=== PATIENT | male | born 1955 | race Caucasian/White ===

== ENCOUNTER → 2024-12-18 | Outpatient (CLI) | payer MEDICARE, OTHER, SELFPAY ==
[2024-12-18 09:47] LABS: Misc Send Out* See Sep Rpt
[2024-12-18 09:57] LABS: Collection Type, Urine Clean Catch; Squamous Epithelial Cell,Urine 0 /hpf (0-5)
[2024-12-18 10:20] LABS: Basophils % (Auto) 1 % (0-2.5); Eosinophils # (Auto) 0.2 Thou/mm3 (0.0-0.5); Eosinophils % (Auto) 5 % (0-10); Hematocrit 40.7 % (41.0-53.0); Hemoglobin 13.5 g/dL (13.5-16.0); Immature Granulocytes % (Auto) 1 % (0-0); Immature Granulocytes Auto 0.03 Thou/mm3 (0.00-0.00); Immature Reticulocyte Fraction 20.9 % (2.3-13.4); Lymphocytes # (Auto) 1.1 Thou/mm3 (1.0-4.8); Lymphocytes % (Auto) 25 % (10-50); Mean Corpuscular HGB Conc 33.2 g/dl (31.0-37.0); Mean Corpuscular Hemoglobin 31.2 pg (25.0-35.0); Mean Corpuscular Volume 94 fL (80-100); Monocytes # (Auto) 0.3 Thou/mm3 (0.0-0.8); Monocytes % (Auto) 8 % (0-12); Neutrophils # (Auto) 2.7 Thou/mm3 (1.8-7.7); Neutrophils % (Auto) 61 % (37-80); Nucleated Red Blood Cell % 0 /100 WBC (0); Platelet Count 170 Thou/mm3 (140-440); RDW Standard Deviation 46.9 fL (35.1-43.9); Red Blood Count 4.33 Miln/mm3 (4.50-5.90); Reticulocyte % (Auto) 2.5 % (0.5-1.5); Reticulocyte Absolute Auto 108.3 Biln/L (25.0-75.0); Reticulocyte Hgb Content 36.2 pg (28.0-35.0); White Blood Count 4.4 Thou/mm3 (3.8-10.6)
[2024-12-18 10:31] LABS: Glucose Estimated Average 157 mg/dL (80-131); Hemoglobin A1C 7.1 % Hgb (4.8-6.0)
[2024-12-18 10:32] LABS: Alanine Aminotransferase 25 U/L (10-49); Albumin, Serum 4.7 gm/dL (3.4-4.8); Alkaline Phosphatase 30 U/L (46-116); Anion Gap 6 (7-16); Aspartate Amino Transferase 14 U/L (0-34); BUN/Creatinine Ratio 27 Ratio (12-20); Bilirubin,Total 0.5 mg/dL (0.3-1.2); Blood Urea Nitrogen 35 mg/dL (9-23); Calcium 10.1 mg/dL (8.3-10.6); Calcium (Corrected) 10.1 mg/dL (8.5-10.1); Carbon Dioxide 30.8 mMol/L (20.0-31.0); Cardiac Risk Estimate 4.5 RATIO (4.0-6.7); Chloride 102 mMol/L (98-107); Cholesterol 141 mg/dL (132-200); Creatinine (Component) 1.3 mg/dL (0.6-1.3); Glucose 176 mg/dL (74-106); HDL Cholesterol 31 mg/dL (40-60); LDL Cholesterol,Calculated 54 mg/dL (0-130); Magnesium 1.9 mg/dL (1.6-2.6); Osmolality,Calculated 289 (275-295); Parathyroid Hormone Intact 33.9 pg/ml (18.5-88.0); Phosphorous 2.9 mg/dL (2.4-5.1); Potassium 4.3 mMol/L (3.4-5.1); Sodium 139 mMol/L (136-145); Total Protein 6.9 gm/dL (5.7-8.2); Triglycerides 278 mg/dL (30-150); eGFR 59 See Note
[2024-12-18 10:33] LABS: Total Iron Binding Capacity 439 mcg/dL (250-425)
[2024-12-18 10:40] LABS: Folate 12.64 ng/mL (>5.38); Vitamin B12 889 pg/mL (211-911); Vitamin D 25 Hydroxy Total 36.4 ng/mL (7.3-40.2)
[2024-12-18 10:44] LABS: Creatinine MALB Rnd Ur 30 mg/dL (30-125); Creatinine,Random Urine 30 mg/dL (30-125); Microalbumin Creat Ratio 13 mg/gCrea (<30); Microalbumin, Random Urine 4 mg/L (0-300); Protein Total, Random Urine < 6 mg/dL (1-14)
[2024-12-18 10:49] LABS: Ferritin 73 ng/mL (10.5-307.3); Iron 101 mcg/dL (65-175); Percent Iron Saturation 23 % (20-55); Unsaturated Iron Binding 338 (225-295)
[2024-12-18 11:04] LABS: Bilirubin,Urine Negative (Negative); Blood,Urine Negative (Negative); Clarity,Urine Clear (Clear/Hazy); Color,Urine Colorless (Lt Yel-Yel); Glucose, Urine 4+ (Negative); Ketones,Urine Negative (Negative); Leukocyte Esterase,Urine Negative (Negative); Nitrite,Urine Positive (Negative); PH,Urine 6.5 (5.0-7.0); Protein,Urine Negative (Neg - Trace); RBC,Urine 1 /hpf (0-3); Specific Gravity,Urine 1.013 (1.001-1.035); Urobilinogen,Urine Negative mg/dL (0.0-1.0); WBC,Urine 3 /hpf (0-5)
== END | disposition home or self-care (01) ==
LOC: COPL 09:19
PROVIDERS: PCP Family Medicine; Referring Provider Internal Medicine Nephrology; Visit Provider Internal Medicine Nephrology
DX: I12.9 Hypertensive chronic kidney disease with stage 1 through stage 4 chronic kidney disease, or unspecified chronic kidney disease (principal); E11.22 Type 2 diabetes mellitus with diabetic chronic kidney disease; N18.2 Chronic kidney disease, stage 2 (mild); N39.0 Urinary tract infection, site not specified; E87.3 Alkalosis; E55.9 Vitamin D deficiency, unspecified; E78.5 Hyperlipidemia, unspecified
CPT/HCPCS: 36415; 80061; 80069; 81001; 82043; 82247; 82306; 82570; 82607; 82728; 82746; 83036; 83540; 83550; 83735; 83970; 84075; 84155; 84156; 84450; 84460; 85025; 85046; 87077; 87086; 87186

== ENCOUNTER → 2025-05-05 | Outpatient (CLI) | payer MEDICARE, OTHER, SELFPAY ==
[2025-05-05 10:11] LABS: Misc Send Out* See Sep Rpt
[2025-05-05 10:39] LABS: Collection Type, Urine Clean Catch; Squamous Epithelial Cell,Urine 0 /hpf (0-5)
[2025-05-05 10:59] LABS: Basophils % (Auto) 0 % (0-2.5); Eosinophils # (Auto) 0.2 Thou/mm3 (0.0-0.5); Eosinophils % (Auto) 3 % (0-10); Hematocrit 43.8 % (41.0-53.0); Hemoglobin 14.4 g/dL (13.5-16.0); Immature Granulocytes % (Auto) 1 % (0-0); Immature Granulocytes Auto 0.06 Thou/mm3 (0.00-0.00); Immature Reticulocyte Fraction 20.9 % (2.3-13.4); Lymphocytes # (Auto) 1.3 Thou/mm3 (1.0-4.8); Lymphocytes % (Auto) 25 % (10-50); Mean Corpuscular HGB Conc 32.9 g/dl (31.0-37.0); Mean Corpuscular Hemoglobin 30.8 pg (25.0-35.0); Mean Corpuscular Volume 94 fL (80-100); Monocytes # (Auto) 0.4 Thou/mm3 (0.0-0.8); Monocytes % (Auto) 8 % (0-12); Neutrophils # (Auto) 3.3 Thou/mm3 (1.8-7.7); Neutrophils % (Auto) 63 % (37-80); Nucleated Red Blood Cell % 0 /100 WBC (0); Platelet Count 189 Thou/mm3 (140-440); RDW Standard Deviation 47.8 fL (35.1-43.9); Red Blood Count 4.67 Miln/mm3 (4.50-5.90); Reticulocyte % (Auto) 2.4 % (0.5-1.5); Reticulocyte Absolute Auto 110.7 Biln/L (25.0-75.0); Reticulocyte Hgb Content 34.6 pg (28.0-35.0); White Blood Count 5.3 Thou/mm3 (3.8-10.6)
[2025-05-05 11:01] LABS: Bilirubin,Urine Negative (Negative); Blood,Urine Negative (Negative); Clarity,Urine Clear (Clear/Hazy); Color,Urine Colorless (Lt Yel-Yel); Glucose, Urine 3+ (Negative); Ketones,Urine Negative (Negative); Leukocyte Esterase,Urine Negative (Negative); Nitrite,Urine Positive (Negative); PH,Urine 6.5 (5.0-7.0); Protein,Urine Negative (Neg - Trace); RBC,Urine 3 /hpf (0-3); Specific Gravity,Urine 1.009 (1.001-1.035); Urobilinogen,Urine Negative mg/dL (0.0-1.0); WBC,Urine 1 /hpf (0-5)
[2025-05-05 11:07] LABS: Glucose Estimated Average 143 mg/dL (80-131); Hemoglobin A1C 6.6 % Hgb (4.8-6.0)
[2025-05-05 11:11] LABS: Parathyroid Hormone Intact 19.5 pg/ml (18.5-88.0)
[2025-05-05 11:14] LABS: Alanine Aminotransferase 30 U/L (10-49); Alkaline Phosphatase 32 U/L (46-116); Anion Gap 11 (7-16); Aspartate Amino Transferase 25 U/L (0-34); BUN/Creatinine Ratio 26 Ratio (12-20); Bilirubin,Total 0.6 mg/dL (0.3-1.2); Blood Urea Nitrogen 36 mg/dL (9-23); Calcium 10.5 mg/dL (8.3-10.6); Calcium (Corrected) 10.5 mg/dL (8.5-10.1); Carbon Dioxide 29.6 mMol/L (20.0-31.0); Cardiac Risk Estimate 5.4 RATIO (4.0-6.7); Chloride 100 mMol/L (98-107); Cholesterol 162 mg/dL (132-200); Creatine Kinase 176 U/L (34-171); Creatinine (Component) 1.4 mg/dL (0.6-1.3); Glucose 141 mg/dL (74-106); HDL Cholesterol 30 mg/dL (40-60); Magnesium 2.1 mg/dL (1.6-2.6); Osmolality,Calculated 291 (275-295); Phosphorous 3.3 mg/dL (2.4-5.1); Potassium 4.3 mMol/L (3.4-5.1); Sodium 141 mMol/L (136-145); Total Protein 6.9 gm/dL (5.7-8.2); Triglycerides 459 mg/dL (30-150); Uric Acid 9.2 mg/dL (3.7-9.2); eGFR 54 See Note
[2025-05-05 11:15] LABS: Ferritin 58 ng/mL (10.5-307.3); Iron 87 mcg/dL (65-175); Percent Iron Saturation 18 % (20-55); Total Iron Binding Capacity 469 mcg/dL (250-425); Unsaturated Iron Binding 382 (225-295)
[2025-05-05 11:18] LABS: Creatinine MALB Rnd Ur 19 mg/dL (30-125); Creatinine,Random Urine 19 mg/dL (30-125); Microalbumin, Random Urine < 3 mg/L (0-300); Protein Total, Random Urine 7 mg/dL (1-14)
[2025-05-05 12:13] LABS: Folate 13.13 ng/mL (>5.38); Vitamin B12 1147 pg/mL (211-911)
== END | disposition home or self-care (01) ==
LOC: COPL 09:36
PROVIDERS: PCP Family Medicine; Referring Provider Internal Medicine Nephrology; Visit Provider Internal Medicine Nephrology
DX: E11.22 Type 2 diabetes mellitus with diabetic chronic kidney disease (principal); D63.1 Anemia in chronic kidney disease; E55.9 Vitamin D deficiency, unspecified; E78.5 Hyperlipidemia, unspecified; E79.0 Hyperuricemia without signs of inflammatory arthritis and tophaceous disease; E87.3 Alkalosis; N18.9 Chronic kidney disease, unspecified; N39.0 Urinary tract infection, site not specified; Z87.441 Personal history of nephrotic syndrome
CPT/HCPCS: 36415; 80061; 80069; 81001; 82043; 82247; 82306; 82550; 82570; 82607; 82728; 82746; 83036; 83540; 83550; 83735; 83970; 84075; 84155; 84156; 84450; 84460; 84550; 85025; 85046; 87086

== ENCOUNTER → 2025-08-06 | Outpatient (CLI) | payer MEDICARE, OTHER, SELFPAY ==
[2025-08-06 09:54] LABS: Misc Send Out* See Sep Rpt
[2025-08-06 10:11] LABS: Collection Type, Urine Clean Catch; Squamous Epithelial Cell,Urine 0 /hpf (0-5)
[2025-08-06 10:36] LABS: Basophils # (Auto) 0.0 Thou/mm3 (0.0-0.2); Basophils % (Auto) 1 % (0-2.5); Eosinophils # (Auto) 0.1 Thou/mm3 (0.0-0.5); Eosinophils % (Auto) 3 % (0-10); Hematocrit 43.0 % (41.0-53.0); Hemoglobin 13.9 g/dL (13.5-16.0); Immature Granulocytes Auto 0.04 Thou/mm3 (0.00-0.00); Immature Reticulocyte Fraction 18.8 % (2.3-13.4); Lymphocytes # (Auto) 1.1 Thou/mm3 (1.0-4.8); Lymphocytes % (Auto) 25 % (10-50); Mean Corpuscular HGB Conc 32.3 g/dl (31.0-37.0); Mean Corpuscular Hemoglobin 30.5 pg (25.0-35.0); Mean Corpuscular Volume 95 fL (80-100); Monocytes # (Auto) 0.3 Thou/mm3 (0.0-0.8); Monocytes % (Auto) 8 % (0-12); Neutrophils # (Auto) 2.7 Thou/mm3 (1.8-7.7); Neutrophils % (Auto) 63 % (37-80); Nucleated Red Blood Cell # 0.00 Thou/mm3 (0.00-0.00); Nucleated Red Blood Cell % 0 /100 WBC (0); Platelet Count 193 Thou/mm3 (140-440); RDW Standard Deviation 48.1 fL (35.1-43.9); Red Blood Count 4.55 Miln/mm3 (4.50-5.90); Reticulocyte % (Auto) 2.4 % (0.5-1.5); Reticulocyte Absolute Auto 108.7 Biln/L (25.0-75.0); Reticulocyte Hgb Content 34.4 pg (28.0-35.0); White Blood Count 4.3 Thou/mm3 (3.8-10.6)
[2025-08-06 10:53] LABS: Parathyroid Hormone Intact 32.2 pg/ml (18.5-88.0)
[2025-08-06 11:00] LABS: Bilirubin,Urine Negative (Negative); Blood,Urine Negative (Negative); Clarity,Urine Clear (Clear/Hazy); Color,Urine Colorless (Lt Yel-Yel); Glucose, Urine 3+ (Negative); Ketones,Urine Negative (Negative); Leukocyte Esterase,Urine Negative (Negative); Nitrite,Urine Positive (Negative); PH,Urine 7.0 (5.0-7.0); Protein,Urine Negative (Neg - Trace); RBC,Urine 2 /hpf (0-3); Specific Gravity,Urine 1.009 (1.001-1.035); Urobilinogen,Urine Negative mg/dL (0.0-1.0); WBC,Urine 3 /hpf (0-5)
[2025-08-06 11:01] LABS: Folate 12.48 ng/mL (>5.38); Vitamin B12 1029 pg/mL (211-911); Vitamin D 25 Hydroxy Total 40.0 ng/mL (7.3-40.2)
[2025-08-06 11:05] LABS: Culture Indicated,Urine Yes
[2025-08-06 11:07] LABS: Ferritin 65 ng/mL (10.5-307.3); Iron 112 mcg/dL (65-175); Percent Iron Saturation 25 % (20-55); Total Iron Binding Capacity 440 mcg/dL (250-425); Unsaturated Iron Binding 328 (225-295)
[2025-08-06 11:08] LABS: Alanine Aminotransferase 32 U/L (10-49); Albumin, Serum 4.7 gm/dL (3.4-4.8); Albumin/Globulin Ratio 2.5 (1.2-2.2); Alkaline Phosphatase 34 U/L (46-116); Anion Gap 9 (7-16); Aspartate Amino Transferase 23 U/L (0-34); BUN/Creatinine Ratio 21 Ratio (12-20); Bilirubin,Total 0.7 mg/dL (0.3-1.2); Blood Urea Nitrogen 29 mg/dL (9-23); Calcium 10.3 mg/dL (8.3-10.6); Calcium (Corrected) 10.3 mg/dL (8.5-10.1); Carbon Dioxide 30.2 mMol/L (20.0-31.0); Chloride 102 mMol/L (98-107); Creatinine (Component) 1.4 mg/dL (0.6-1.3); Globulin 1.9 gm/dL (2.3-3.5); Glucose 139 mg/dL (74-106); Magnesium 2.2 mg/dL (1.6-2.6); Osmolality,Calculated 289 (275-295); Phosphorous 3.1 mg/dL (2.4-5.1); Potassium 4.3 mMol/L (3.4-5.1); Sodium 141 mMol/L (136-145); Total Protein 6.6 gm/dL (5.7-8.2); eGFR 53 See Note
[2025-08-06 11:16] LABS: Creatinine,Random Urine 24 mg/dL (30-125); Protein Total, Random Urine < 6 mg/dL (1-14)
[2025-08-11 19:51] LABS: Albumin 4.2 g/dL (3.8-4.8); Alpha-1-Globulin 0.3 g/dL (0.2-0.3); Alpha-2-Globulin 0.8 g/dL (0.5-0.9); Beta-1-Globulin 0.5 g/dL (0.4-0.6); Beta-2-globulin 0.3 g/dL (0.2-0.5); Gamma Globulin 0.4 g/dL (0.8-1.7); Kappa Light Chain, Free 18.3 mg/L (3.3-19.4); Lambda Light Chain, Free 13.5 mg/L (5.7-26.3)
[2025-08-12 06:55] LABS: Kappa/Lambda, Free Ratio 1.36 (0.26-1.65); Protein, total, serum 6.6 g/dL (6.1-8.1)
== END | disposition home or self-care (01) ==
LOC: COPL 09:30
PROVIDERS: PCP Family Medicine; Referring Provider Internal Medicine Nephrology; Visit Provider Internal Medicine Nephrology
DX: N18.1 Chronic kidney disease, stage 1 (principal); N39.0 Urinary tract infection, site not specified; D63.1 Anemia in chronic kidney disease; E55.9 Vitamin D deficiency, unspecified; E78.5 Hyperlipidemia, unspecified; E79.0 Hyperuricemia without signs of inflammatory arthritis and tophaceous disease
CPT/HCPCS: 36415; 80053; 81001; 82306; 82570; 82607; 82728; 82746; 83521; 83540; 83550; 83735; 83970; 84100; 84155; 84156; 84165; 85025; 85046; 86334; 87086